=== PATIENT | female | born 1955 | race Caucasian/White ===

== ENCOUNTER 2018-02-11 10:52 | Day surgery (SDC) | payer OTHER ==
[2018-02-11] MEDS: HEALON DUET (HEALON 10MG/ML 0.55ML & HEALON ENDOCOAT 30MG/ML 0.85ML) As Ordered (06:49)
[~2018-02-11 10:52] MED LIST: ACETAMINOPHEN 325 MG TAB PO; PHENYLEPHRINE HCL 10 % OPHTH. SOL 5ML OD; PROPARACAINE 0.5% OPHTH SOL 15ML OD
[2018-02-11] MEDS: LIDOCAINE 3.5 % 1ML OPHTH TOPICAL GEL OU (11:10)
[2018-02-11] MEDS: TROPICAMIDE 1% OPHTH SOLN 2ML OD (11:15)
[2018-02-11] MEDS: PHENYLEPHRINE 2.5% OPHTH SOL 2ML OD (11:15)
[2018-02-11] MEDS: OFLOXACIN 0.3 % (OCUFLOX) OPTH SOL 5ML OD (11:15)
[2018-02-11] MEDS: CYCLOPENTOLATE 2% OPHTH SOLN 2ML BTL OD (11:15)
[2018-02-11] MEDS ORDERED: fentaNYL 100 MCG/2 ML INJECTION (J3010) As Ordered (13:18)
[2018-02-11] MEDS ORDERED: MIDAZOLAM INJ 2 MG/2 ML VIAL (J2250) As Ordered (13:18)
[2018-02-11] MEDS: LIDOCAINE 1% SDV 5 ML VIAL As Ordered (13:21)
[2018-02-11] MEDS: POVIDONE-IODINE 5% OPHTH PREP SOL 30ML As Ordered (13:21)
[2018-02-11] MEDS: BALANCED SALT IRRIGATION SOLUTION 500ML BAG (FOR OR EYE MACHINE) As Ordered (13:21)
[2018-02-11] MEDS: CEFUROXIME 1MG/0.1ML INTRACAMERAL INJ As Ordered (13:21)
[2018-02-11] MEDS ORDERED: PROPOFOL 200 MG/20 ML VIAL As Ordered (13:24)
[2018-02-11] MEDS: ACETYLCHOLINE OPHTH SOLN 1% 2ML (MIOCHOL-E) As Ordered (13:38)
[2018-02-11] MEDS ORDERED: TOBRADEX OPHTH OINT 3.5 GM As Ordered (13:39)
[2018-02-11] MEDS ORDERED: AcetaZOLAMIDE 500 MG ER CAP PO (14:00)
[2018-02-11] MEDS ORDERED: TRIMETHOBENZAMIDE 300 MG CAP PO (14:00)
[2018-02-11] MEDS ORDERED: KETOROLAC 0.5% OPHTH SOLN OD (14:00)
== END 2018-02-11 14:45 | disposition home or self-care (01) ==
LOC: M SDC 14:45
DX: H25.11 Age-related nuclear cataract, right eye (principal); I10 Essential (primary) hypertension; F32.9 Major depressive disorder, single episode, unspecified; Z79.899 Other long term (current) drug therapy; F17.210 Nicotine dependence, cigarettes, uncomplicated
CPT/HCPCS: 66984

== ENCOUNTER → 2019-12-14 | Outpatient (REF) | payer OTHER ==
[~2019-12-14] MED LIST changes: -ACETAMINOPHEN 325 MG TAB PO; +ATEN50TA2 PO; +CITA20TA6 PO; +LOSA100T50 PO; -PHENYLEPHRINE HCL 10 % OPHTH. SOL 5ML OD; -PROPARACAINE 0.5% OPHTH SOL 15ML OD
== END ==
LOC: M LAB REF 16:19
PROVIDERS: ATTEND Physician Assistant Medical
DX: Z03.818 Encounter for observation for suspected exposure to other biological agents ruled out (principal); Z11.59 Encounter for screening for other viral diseases